=== PATIENT | male | born 1985 | race Caucasian/White ===

== ENCOUNTER 2019-11-10 07:14 | Day surgery (SDC) | payer OTHER ==
[2019-11-06 10:47] VITALS: BMI 26.6
[2019-11-10] MEDS ORDERED: Bacitracin Zinc Ointment 30 gm TUBE ONE (09:03)
[2019-11-10] MEDS ORDERED: Betamet Acet/Betamet Na Ph 30 MG/5 ML VIAL ONE (09:03)
[2019-11-10] MEDS ORDERED: Bupivacaine PF 0.5% 30 ML VIAL ONE (09:03)
[2019-11-10] MEDS ORDERED: Sodium Chloride 0.9% 10 ML ONE (09:03)
[2019-11-10] MEDS ORDERED: Dexamethasone 20 MG/5 ML VIAL ONE (09:50)
[2019-11-10] MEDS ORDERED: Ondansetron PF 4 MG/2 ML Vial ONE (09:50)
[2019-11-10] MEDS ORDERED: Ketorolac Tromethamine 30 MG/ML VIAL ONE (09:50)
[2019-11-10] MEDS ORDERED: PROPOFOL 200 MG/20 ML VIAL ONE (09:50)
[2019-11-10] MEDS ORDERED: Lidocaine 1% PF 5 ML VIAL ONE (09:50)
[2019-11-10] MEDS ORDERED: Midazolam HCl 2 mg/2 ml Vial ONE (09:54)
[2019-11-10] MEDS ORDERED: HYDROmorphone 0.5 MG/0.5 ML SYRINGE ONE (10:00)
--- NOTE | 2019-11-10 12:16 | OP ---
DATE OF PROCEDURE: 11/10/2019 PREOPERATIVE DIAGNOSIS: Right small finger lipoma. POSTOPERATIVE DIAGNOSIS: Right small finger lipoma, 2.0 cm long x 6 mm wide right small finger middle aspect lipomatous mass over the digital nerve requiring neuroplasty. PROCEDURE PERFORMED: 1. Right small finger excision lipoma. 2. Right small finger digital nerve neuroplasty. TOURNIQUET TIME: 7 minutes. ESTIMATED BLOOD LOSS: 5 mL. SPECIMEN: 2.0 x 0.6 cm lipoma sent to Pathology. INDICATIONS FOR PROCEDURE: The patient with mass, painful with contact. Reports aching pain radiating up and down the finger, possibly indicative of nerve involvement. DESCRIPTION OF PROCEDURE: After successful general endotracheal anesthesia by [employer] [facility], the patient then had the limb prepped and draped. We injected 10 mL 0.5% Marcaine at the metacarpophalangeal block level and then 3 minutes later, exsanguinated the limb, inflated tourniquet to 250 mmHg pressure, then made a 2 cm incision centered over what felt to be approximately a 1 cm mass. We then dissected down and the mass was identified as subcutaneous lipoma, but it had marked soft tissue connections over the neural sheath so I had to perform a formal radial small finger digital nerve neuroplasty in order to separate the nerve from the mass. We then lifted off the mass and still appeared to be lipomatosis and not neural in origin. The mass was sent as specimen. We deflated the tourniquet, obtained hemostasis. We placed Celestone in the bed where the mass was located 3 mL and then closed the wound with hemostasis using interrupted 4-0 nylon simple pattern. A bulky dressing was applied to include the ring finger and small finger with a small loosely applied Coban holding it in place, the digit remained pink. The patient left the operating room without evidence of anesthetic or operative complication. Job ID: [id number]
== END 2019-11-10 12:50 | disposition home or self-care (01) ==
LOC: SDC 07:14
PROVIDERS: ATTEND Orthopaedic Surgery Hand Surgery
PROC: 0JBJ0ZZ Excision of Right Hand Subcutaneous Tissue and Fascia, Open Approach (ICD-10-PCS; principal; 2019-11-10)
DX: D36.12 Benign neoplasm of peripheral nerves and autonomic nervous system, upper limb, including shoulder (principal); Z87.891 Personal history of nicotine dependence
CPT/HCPCS: 88307; 88342; J0690; J0702; J1100; J1170; J1885; J2001; J2250; J2405; J2704; J3490; S0020